=== PATIENT | female | born 1965 | race Caucasian/White ===

== ENCOUNTER 2020-01-20 08:30 | Day surgery (SDC) | payer OTHER, SELFPAY ==
[~2020-01-20] VITALS: Ht 165.1 cm; Wt 72.1 kg
[2020-01-20] MEDS ORDERED: LIDOCAINE 2% 100 MG/5 ML UJET TP ONE (10:14)
[2020-01-20] MEDS ORDERED: fentaNYL citrate 0.05 MG/ML VIAL ONE (10:14)
[2020-01-20] MEDS ORDERED: fentaNYL citrate 0.05 MG/ML VIAL IVP ONE (10:55)
== END 2020-01-20 11:05 | disposition home or self-care (01) ==
LOC: MDS 08:30 → MMU 08:31 → MDS 11:05
PROVIDERS: ATTEND Internal Medicine Gastroenterology
DX: K59.00 Constipation, unspecified (principal); Z80.0 Family history of malignant neoplasm of digestive organs; E78.00 Pure hypercholesterolemia, unspecified; G40.909 Epilepsy, unspecified, not intractable, without status epilepticus; Z20.828 Contact with and (suspected) exposure to other viral communicable diseases
CPT/HCPCS: 45378; 81025; J3010; U0003